=== PATIENT | male | born 1985 | race Caucasian/White ===

== ENCOUNTER 2018-10-20 11:49 | Emergency (ER) | payer SELFPAY ==
--- NOTE | 2018-10-20 12:15 | ER Document Report ---
ED Medical Screen (RME) - General Chief Complaint: Skin Problem Stated Complaint: SKIN PROBLEM Time Seen by Provider: 10/20/18 12:09 Notes: 33-year-old male patient complains of multiple sores lesions all over his body with swelling to the left jaw and left thumb. I have greeted and performed a rapid initial assessment of this patient. A comprehensive ED assessment and evaluation of the patient, analysis of test results and completion of the medical decision making process will be conducted by additional ED providers. TRAVEL OUTSIDE OF THE [place] IN LAST 30 DAYS: No - Related Data Allergies/Adverse Reactions: amoxicillin [Amoxicillin] Allergy (Verified 10/20/18 11:55) ampicillin [Ampicillin] Allergy (Verified 10/20/18 11:55) erythromycin base [Erythromycin Base] Allergy (Verified 10/20/18 11:55) Past Medical History - Social History Chew tobacco use (# tins/day): No Frequency of alcohol use: None Drug Abuse: None Renal/ Medical History: Denies: Hx Peritoneal Dialysis Physical Exam - Vital signs Vitals: Temp Pulse Resp BP Pulse Ox 98.7 F 108 H 16 143/71 H 98 10/20/18 11:56 10/20/18 11:56 10/20/18 11:56 10/20/18 11:56 10/20/18 11:56 Course - Vital Signs Vital signs: Temp Pulse Resp BP Pulse Ox 98.7 F 108 H 16 143/71 H 98 10/20/18 11:56 10/20/18 11:56 10/20/18 11:56 10/20/18 11:56 10/20/18 11:56
[2018-10-20 12:59] LABS: ABSOLUTE EOSINOPHILS # (AUTO) 0.3 10^3/uL (0.0-0.6); ABSOLUTE LYMPHOCYTES (AUTO) 1.6 10^3/uL (0.5-4.7); ABSOLUTE MONOCYTES (AUTO) 0.9 10^3/uL (0.1-1.4); ABSOLUTE NEUT (AUTO) 6.7 10^3/uL (1.7-8.2); BASOPHILS % (AUTO) 0.3 % (0-2); EOSINOPHILS % (AUTO) 2.8 % (0-6); HEMATOCRIT 34.7 % (37.9-51.0); HEMOGLOBIN 12.3 g/dL (13.5-17.0); LYMPHOCYTES % (AUTO) 16.7 % (13-45); MEAN CORPUSCULAR HEMOGLOBIN 30.7 pg (27.0-33.4); MEAN CORPUSCULAR HGB CONC 35.4 g/dL (32.0-36.0); MEAN CORPUSCULAR VOLUME 87 fl (80-97); MONOCYTES % (AUTO) 9.6 % (3-13); PLATELET COUNT 174 10^3/uL (150-450); SEGMENTED NEUTROPHILS % (AUTO) 70.6 % (42-78); TOTAL CELLS COUNTED % (AUTO) 100 %; WHITE BLOOD COUNT 9.5 10^3/uL (4.0-10.5)
[2018-10-20 13:14] LABS: ALANINE AMINOTRANSFERASE 23 U/L (21-72); ALBUMIN 4.1 g/dL (3.5-5.0); ALKALINE PHOSPHATASE 66 U/L (38-126); ANION GAP 10 (5-19); ASPARTATE AMINO TRANSFERASE 23 U/L (17-59); BILIRUBIN,DIRECT 0.2 mg/dL (0.0-0.4); BILIRUBIN,TOTAL 0.6 mg/dL (0.2-1.3); BLOOD UREA NITROGEN 18 mg/dL (7-20); CALCIUM 9.7 mg/dL (8.4-10.2); CARBON DIOXIDE 31 mmol/L (22-30); CHLORIDE 96 mmol/L (98-107); CREATINE KINASE 64 U/L (55-170); GLUCOSE 109 mg/dL (75-110); POTASSIUM 3.7 mmol/L (3.6-5.0); SODIUM 137.4 mmol/L (137-145); TOTAL PROTEIN 7.3 g/dL (6.3-8.2)
[2018-10-20] MEDS ORDERED: CLINDAMYCIN HCL 150 MG CAPSULE PO ONE (13:29)
--- NOTE | 2018-10-20 13:36 | ER Document Report ---
ED General - General Chief Complaint: Skin Problem Stated Complaint: SKIN PROBLEM Time Seen by Provider: 10/20/18 12:09 TRAVEL OUTSIDE OF THE [place] IN LAST 30 DAYS: No - HPI Notes: Patient is a 33-year-old male that presents to the emergency department for chief complaint of rash. Patient reports over the last week he has had increased swelling to his face and back of his right leg. He states that he has had a rash over his body for the last week as well. He does endorse recent methamphetamine use. He states he has a history of IV drug use but will not tell me what specific drugs he is injecting. He states it has been "a while" since his last use of methamphetamine and he will not explicitly tell me how long. He is complaining of burning to his skin diffusely. He is denying any difficulty swallowing, breathing, chest pain, nausea/vomiting, abdominal pain, numbness and weakness. He has tried to harris some of the lesions with a needle and states occasionally possible come out. Past Medical History: Negative Past Surgical History: Negative Social History: Methamphetamine use, IV drug use, daily tobacco Family History: Reviewed and noncontributory for presenting illness Allergies: Reviewed, see documented allergy list. REVIEW OF SYSTEMS: CONSTITUTIONAL : No fever No chills No diaphoresis No recent illness EENT: No vision changes No congestion No sore throat CARDIOVASCULAR: No chest pain No palpitations RESPIRATORY: No shortness of breath No cough No difficulty breathing GASTROINTESTINAL: No abdominal pain No nausea No vomiting No diarrhea GENITOURINARY: No dysuria No hematuria No difficulty urinating MUSCULOSKELETAL: No back pain No leg pain No arm pain SKIN: rashes No lesions LYMPHATIC: No swollen, enlarged glands. NEUROLOGICAL: No lightheadedness No headache No weakness No paresthesias PSYCHIATRIC: No anxiety No depression PHYSICAL EXAMINATION: Vital signs reviewed, nursing noted reviewed. GENERAL: Well-appearing, well-nourished and in no acute distress. HEAD: Atraumatic, normocephalic. EYES: Eyes appear normal, extraocular movements intact, sclera anicteric, conjunctiva are normal. ENT: Diffuse dental decay, nares patent, oropharynx clear without exudates. Moist mucous membranes. NECK: Normal range of motion, right submental lymphadenopathy LUNGS: Breath sounds mildly wheezy to auscultation with no respiratory distress. HEART: Tachycardic rate and regular rhythm without murmurs ABDOMEN: Soft, nontender, normoactive bowel sounds. No rebound, guarding, or rigidity. No masses appreciated. EXTREMITIES: Nontender, good range of motion, no pitting or edema. NEUROLOGICAL: No focal neurological deficits. Moves all extremities spontaneously Motor and sensory grossly intact on exam. PSYCH: Anxious, agitated, fidgety, pacing in the room. SKIN: Warm, Dry, normal turgor. In numerous open sores on extremities, face, upper chest with sparing on central back consistent with pick dawn, edema over left mandible with mild erythema, no areas of fluctuance. Indurated area with erythema and tenderness with central punctate lesion to posterior right thigh measuring 5 cm x 4 cm with no fluctuance. - Related Data Allergies/Adverse Reactions: amoxicillin [Amoxicillin] Allergy (Verified 10/20/18 11:55) ampicillin [Ampicillin] Allergy (Verified 10/20/18 11:55) erythromycin base [Erythromycin Base] Allergy (Verified 10/20/18 11:55) Past Medical History - Social History Smoking Status: Current Every Day Smoker Chew tobacco use (# tins/day): No Frequency of alcohol use: None Drug Abuse: None Family History: Reviewed & Not Pertinent Patient has suicidal ideation: No Patient has homicidal ideation: No Renal/ Medical History: Denies: Hx Peritoneal Dialysis Physical Exam - Vital signs Vitals: Temp Pulse Resp BP Pulse Ox 98.7 F 108 H 16 143/71 H 98 10/20/18 11:56 10/20/18 11:56 10/20/18 11:56 10/20/18 11:56 10/20/18 11:56 Course - Re-evaluation Re-evalutation: 10/20/18 13:41 Vitals reviewed. Nursing notes reviewed. Patient is afebrile and nontoxic in appearance. He does appear very fidgety and likely high on methamphetamine. He is pacing in the room and will not sit still. His overstimulated state is likely to blame for his tachycardia. He has no other Sirs criteria including a normal leukocytosis and is not meeting any criteria for sepsis. Patient does have numerous lesions consistent with pick dawn. There is a an area of cellulitis to his posterior right thigh and to his left face over his mandible region. I do not appreciate any fluctuance requiring incision and drainage. Patient will be started on antibiotics for his cellulitis. He was counseled on close follow-up in the next 24-48 hours to assure abscess formation is not happening and to reassess the cellulitis on his face and thigh. He was referred to the [facility] and given family medicine phone numbers in the area. Patient was also told to return to the emergency room if he is unable to get in with anyone for close reevaluation. He was counseled on return precautions. He was counseled on wound care and cessation of drug abuse. He was given [facility] for drug abuse counseling. Patient in agreement with plan of care and stable at discharge. Laboratory 10/20/18 10/20/18 12:44 12:44 WBC 9.5 RBC 4.00 L Hgb 12.3 L Hct 34.7 L MCV 87 MCH 30.7 MCHC 35.4 RDW 13.0 Plt Count 174 Seg Neutrophils % 70.6 Lymphocytes % 16.7 Monocytes % 9.6 Eosinophils % 2.8 Basophils % 0.3 Absolute Neutrophils 6.7 Absolute Lymphocytes 1.6 Absolute Monocytes 0.9 Absolute Eosinophils 0.3 Absolute Basophils 0.0 Sodium 137.4 Potassium 3.7 Chloride 96 L Carbon Dioxide 31 H Anion Gap 10 BUN 18 Creatinine 0.94 Est GFR ( Amer) > 60 Est GFR (Non-Af Amer) > 60 Glucose 109 Calcium 9.7 Total Bilirubin 0.6 Direct Bilirubin 0.2 Neonat Total Bilirubin Not Reportable Neonat Direct Bilirubin Not Reportable Neonat Indirect Bili Not Reportable AST 23 ALT 23 Alkaline Phosphatase 66 Creatine Kinase 64 Total Protein 7.3 Albumin 4.1 - Vital Signs Vital signs: Temp Pulse Resp BP Pulse Ox 98.7 F 108 H 16 143/71 H 98 10/20/18 11:56 10/20/18 11:56 10/20/18 11:56 10/20/18 11:56 10/20/18 11:56 - Laboratory Result Diagrams: 10/20/18 12:44 10/20/18 12:44 Laboratory results interpreted by me: 10/20/18 10/20/18 12:44 12:44 RBC 4.00 L Hgb 12.3 L Hct 34.7 L Chloride 96 L Carbon Dioxide 31 H Discharge - Discharge Clinical Impression: Cellulitis of right thigh, Facial cellulitis, Methamphetamine abuse Condition: Stable Disposition: HOME, SELF-CARE Instructions: Cellulitis (OM), Family Physicians / Practices Additional Instructions: Please return to the emergency department if you have any worsening, or concern of your symptoms. Please return to the emergency department if you develop chest pain, difficulty breathing, severe abdominal pain, or ongoing vomiting. Please follow-up with your primary care physician in 2-3 days and any other recommended physicians. If prescribed, take all medications as directed. If you have any questions or concerns do not hesitate to return the emergency department for evaluation. Wash all of the open wounds on your skin 1-2 times a day with antibacterial soap Quit using methamphetamine and other illicit drugs Return to the emergency room if you have increased swelling over your left face or posterior right leg or if you develop fevers Prescriptions: Clindamycin HCl [Cleocin HCl] 450 mg PO Q6 10 Days capsule Referrals: [facility] [Provider Group] - Follow up tomorrow [facility] [Provider Group] - Follow up as needed
[2018-10-20 13:54] LABS: APPEARANCE,URINE CLEAR; BILIRUBIN,URINE NEGATIVE (NEGATIVE); COLOR,URINE YELLOW; GLUCOSE, URINE NEGATIVE (NEGATIVE); KETONES,URINE NEGATIVE (NEGATIVE); LEUKOCYTE ESTERASE,URINE NEGATIVE (NEGATIVE); NITRITE,URINE NEGATIVE (NEGATIVE); PROTEIN,URINE NEGATIVE (NEGATIVE); URINE SPECIFIC GRAVITY 1.033
[2018-10-20 14:07] LABS: URINE BARBITURATES SCREEN NEGATIVE; URINE BENZODIAZEPINES SCREEN NEGATIVE; URINE COCAINE SCREEN NEGATIVE; URINE MARIJUANA (THC) SCREEN NEGATIVE; URINE METHADONE SCREEN NEGATIVE; URINE PHENCYCLIDINE SCREEN NEGATIVE
[2018-10-20 14:30] VITALS: BP 117/65
== END 2018-10-20 14:10 | disposition home or self-care (01) ==
LOC: ER 11:49
DX: L03.115 Cellulitis of right lower limb (principal); L03.211 Cellulitis of face; F15.10 Other stimulant abuse, uncomplicated; R00.0 Tachycardia, unspecified; L98.9 Disorder of the skin and subcutaneous tissue, unspecified; F17.200 Nicotine dependence, unspecified, uncomplicated; Z88.0 Allergy status to penicillin; Z88.1 Allergy status to other antibiotic agents
CPT/HCPCS: 36415; 80053; 80307; 81001; 82550; 85025; 99283